=== PATIENT | male | born 1980 | race African-American/Black ===

== ENCOUNTER 2019-12-31 08:48 | Emergency (ER) | payer OTHER ==
[~2019-12-31] VITALS: Ht 180.3 cm; Wt 79.4 kg
== END 2019-12-31 15:14 | disposition home or self-care (01) ==
LOC: ER 08:48
DX: S90.32XS Contusion of left foot, sequela (principal); W01.198S Fall on same level from slipping, tripping and stumbling with subsequent striking against other object, sequela